=== PATIENT | male | born 1980 | race Caucasian/White ===

== ENCOUNTER 2017-09-20 10:35 | Inpatient (IN) | payer SELFPAY ==
[2017-09-20 11:23] VITALS: BMI 32.8
--- NOTE | 2017-09-20 12:57 | HP ---
COWS - Scale Resting Pulse: 1= [place] 81-100 Sweatin= Chills/Flushing Restless Observation: 1= Difficult to Sit Still Pupil Size: 1= Pupils >than Normal Bone or Joint Aches: 2= Severe Diffuse Aches Runny Nose/ Eye Tearin= Runny Nose/Eyes GI Upset > 30mins: 1= Stomach Cramp Tremor Observation: 2= Slight Tremor Visible Yawning Observation: 2= >3x During Session Anxiety or Irritability: 2=Irritable/Anxious Goose Flesh Skin: 0=Smooth Skin COWS Score: 15 Admission ROS S - HPI Chief Complaint: withdrawal sx Allergies/Adverse Reactions: Allergies Allergy/AdvReac Type Severity Reaction Status Date / Time No Known Allergies Allergy Verified 09/20/17 12:55 History of Present Illness: 37 years old male with long history of herin oxy nicotine dependence first detox is admitted to detox patient denies medical issue denies psychiatric issue Exam Limitations: No Limitations - Ebola screening Have you traveled outside of the country in the last 21 days: No Have you had contact with anyone from an Ebola affected area: No Have you been sick,other than usual withdrawal symptoms: No Do you have a fever: No - Review of Systems Constitutional: Weight Stable EENT: reports: No Symptoms Reported Respiratory: reports: No Symptoms reported Cardiac: reports: No Symptoms Reported GI: reports: Poor Fluid Intake, Abdominal cramping : reports: No Symptoms Reported Musculoskeletal: reports: Back Pain, Joint Pain, Muscle Pain, Neck Pain Integumentary: reports: No Symptoms Reported Neuro: reports: Tremors Endocrine: reports: No Symptoms Reported Hematology: reports: No Symptoms Reported Psychiatric: reports: Judgement Intact, Mood/Affect Appropiate, Orientated x3 Other Systems: Reviewed and Negative Patient History - Patient Medical History Hx Anemia: No Hx Asthma: No Hx Chronic Obstructive Pulmonary Disease (COPD): No Hx Cancer: No Hx Cardiac Disorders: No Hx Congestive Heart Failure: No Hx Hypertension: No Hx Hypercholesterolemia: No Hx Pacemaker: No HX Cerebrovascular Accident: No Hx Seizures: No Hx Dementia: No Hx Diabetes: No Hx Gastrointestinal Disorders: No Hx Liver Disease: No Hx Genitourinary Disorders: No Hx Sexually Transmitted Disorders: No Hx Renal Disease (ESRD): No Hx Thyroid Disease: No Hx Human Immunodeficiency Virus (HIV): No Hx Hepatitis C: No Hx Depression: No Hx Suicide Attempt: No Hx Bipolar Disorder: No Hx Schizophrenia: No - Patient Surgical History Past Surgical History: No - PPD History Previous Implant?: Yes Documented Results: Negative w/o proof Implanted On Prior R Admission?: No PPD to be Administered?: Yes - Smoking Cessation Smoking history: Current every day smoker Have you smoked in the past 12 months: No Aproximately how many cigarettes per day: 4 Hx Chewing Tobacco Use: No Initiated information on smoking cessation: Yes 'Breaking Loose' booklet given: 09/20/17 - Substance & Tx. History Hx Alcohol Use: No Hx Substance Use: Yes Substance Use Type: Heroin, Opiates Hx Substance Use Treatment: No - Substances Abused Heroin Route: Inhalation Frequency: Daily Amount used: 30 bags Age of first use: 36 Date of Last Use: 09/19/17 Oxycontin Route: Oral Frequency: Daily Amount used: 300 mg Age of first use: 32 Date of Last Use: 09/17/17 Family Disease History - Family Disease History Family Disease History: Heart Disease: Father (), Other: Father Admission Physical Exam S - Vital Signs Vital Signs: Vital Signs - 24 hr 09/20/17 10:47 Temperature 97.6 F Pulse Rate 81 Respiratory 18 Rate Blood Pressure 145/81 - Physical General Appearance: Yes: Appropriately Dressed, Mild Distress, Tremorous, Irritable, Sweating, Anxious HEENTM: Yes: Hearing grossly Normal, Normocephalic, Normal Voice Respiratory: Yes: Chest Non-Tender, Lungs Clear, Normal Breath Sounds, No Respiratory Distress, No Accessory Muscle Use Neck: Yes: Supple, Trachea in good position Breast: Yes: Breasts Symetrical, No Discharge Cardiology: Yes: Regular Rhythm, Regular Rate, S1, S2 Abdominal: Yes: Non Tender, Flat, Increased Bowel Sounds Genitourinary: Yes: Within Normal Limits Back: Yes: Normal Inspection Musculoskeletal: Yes: full range of Motion, Gait Steady, Back pain, Muscle Pain Extremities: Yes: Normal Inspection, Normal Range of Motion, Non-Tender, Tremors Neurological: Yes: Fully Oriented, Alert, Motor Strength 5/5, Normal Mood/Affect , Normal Response Integumentary: Yes: Normal Color, Warm Lymphatic: Yes: Within Normal Limits - Diagnostic (1) Opioid dependence with withdrawal Current Visit: Yes Status: Acute (2) Nicotine dependence Current Visit: Yes Status: Acute Qualifiers: Nicotine product type: cigarettes Substance use status: in withdrawal Qualified Code(s): F17.213 - Nicotine dependence, cigarettes, with withdrawal Cleared for Admission [facility] - Detox or Rehab [facility] Level of Care: Medically Managed Detox Regimen/Protocol: Methadone [facility] Breath Alcohol Content Breath Alcohol Content: 0 Urine Drug Screen - Control Is Test Valid: Yes - Results Drug Screen Negative: No Urine Drug Screen Results: OPI-Opiates, TCA-Tricyclic Antidepress, OXY-Oxycodone
[2017-09-20] MEDS ORDERED: NICOTINE POLACRILEX 2 MG GUM BUC PRN (13:05)
[2017-09-20] MEDS ORDERED: P-EPHED 60MG/TRIPROLIDI 2.5MG TABLET PO PRN (13:05)
[2017-09-20] MEDS ORDERED: MAGNESIUM HYDROX 2400MG/30ML ORAL SUSPENSION 30 ML CUP PO PRN (13:05)
[2017-09-20] MEDS ORDERED: IBUPROFEN 400 MG TABLET (FP) PO PRN (13:05)
[2017-09-20] MEDS ORDERED: MAG HYDROX/AL HYDROX/SIMETH 30 ML UNIT-DOSE CUP PO PRN (13:05)
[2017-09-20] MEDS ORDERED: guaiFENesin/D-METHORPHAN HB 10 ML UNIT-DOSE CUPS PO PRN (13:05)
[2017-09-20] MEDS ORDERED: LOPERAMIDE HCL 2 MG CAPSULE PO PRN (13:05)
[2017-09-20] MEDS ORDERED: MAGNESIUM CITRATE 300 ML BOTTLE PO PRN (13:05)
[2017-09-20] MEDS ORDERED: ACETAMINOPHEN 325 MG TABLET (FP) PO PRN (13:05)
[2017-09-20] MEDS ORDERED: MENTHOL/PHENOL 1 EACH UD MM PRN (13:05)
[2017-09-20] MEDS ORDERED: METHADONE HCL 10 MG TABLET (FOR DETOX USE ONLY) PO ONE ×2 (15:05→23:00)
[2017-09-20] MEDS: diazePAM 5 MG TABLET PO PRN ×2 (16:57→22:33)
[2017-09-20] MEDS: NICOTINE 14 MG/24 HOURS TOPICAL PATCH TD SCH (16:58)
[2017-09-20 17:58] LABS: HEMATOCRIT 45.1 % (35.4-49); HEMOGLOBIN 16.1 GM/dL (11.7-16.9); MCH 32.7 pg (25.7-33.7); MCHC 35.6 g/dl (32.0-35.9); MEAN CELL VOLUME 91.8 fl (80-96); MEAN PLT VOLUME 8.3 fl (7.5-11.1); PLATELET COUNT 266 K/MM3 (134-434); RBC 4.91 M/mm3 (4.00-5.60); RDW 13.8 % (11.9-15.9); WHITE BLOOD COUNT 7.7 K/mm3 (4.0-10.0)
[2017-09-20 18:09] LABS: URINE APPEARANCE CLEAR; URINE BILIRUBIN NEGATIVE (<2.0 mg/dL); URINE BLOOD NEGATIVE (NEGATIVE); URINE COLOR YELLOW; URINE GLUCOSE (UA) NEGATIVE (NEGATIVE); URINE KETONE NEGATIVE (NEGATIVE); URINE LEUK ESTERASE NEGATIVE (NEGATIVE); URINE NITRITE NEGATIVE (NEGATIVE); URINE PROTEIN NEGATIVE (NEGATIVE)
[2017-09-20 18:35] LABS: ANION GAP 5 (8-16); BLOOD UREA NITROGEN 11 mg/dL (7-18); CALCIUM 9.3 mg/dL (8.5-10.1); CHLORIDE 103 mmol/L (98-107); CO2 33 mmol/L (21-32); GLUCOSE,RANDOM 128 mg/dL (74-106); POTASSIUM 5.2 mmol/L (3.5-5.1); SODIUM 141 mmol/L (136-145)
[2017-09-20 18:39] LABS: ALK PHOS 72 U/L (45-117); BILIRUBIN,TOTAL 0.6 mg/dL (0.2-1.0); CREATININE 0.9 mg/dL (0.7-1.3); SGOT/AST 26 U/L (15-37); SGPT/ALT 35 U/L (12-78); TOT PROT 7.4 g/dl (6.4-8.2)
[2017-09-20] MEDS ORDERED: MELATONIN 5 MG TABLETS PO PRN (22:00)
[2017-09-20] MEDS: THIAMINE HCL 100 MG TABLET (FP) PO SCH (22:31)
[2017-09-21] MEDS ORDERED: METHADONE HCL 10 MG TABLET (FOR DETOX USE ONLY) PO ONE (10:00)
--- NOTE | 2017-09-21 10:02 | EKG ---
Test Reason : Blood Pressure : / mmHG Vent. Rate : 079 BPM Atrial Rate : 079 BPM P-R Int : 146 ms QRS Dur : 080 ms QT Int : 370 ms P-R-T Axes : 044 078 064 degrees QTc Int : 424 ms NORMAL SINUS RHYTHM NORMAL ECG NO PREVIOUS ECGS AVAILABLE Confirmed by LEAH OTERO MD ([id number]) on 09/21/2017 10:02:19 AM Referred By: Confirmed By:LEAH OTERO MD
[2017-09-21] MEDS: PRENATAL VITAMINS W/ FOLIC ACID TABLET (FP) PO SCH (10:41)
[2017-09-21] MEDS: diazePAM 5 MG TABLET PO PRN ×3 (10:41→22:28)
[2017-09-21] MEDS: NICOTINE 14 MG/24 HOURS TOPICAL PATCH TD SCH (10:41)
--- NOTE | 2017-09-21 12:18 | PN ---
BHS COWS - Scale Resting Pulse: 1= [place] 81-100 Sweatin= Chills/Flushing Restless Observation: 3= Extraneous Movement Pupil Size: 2= Moderately Dilated Bone or Joint Aches: 4=Acute Joint/Muscle Pain Runny Nose/ Eye Tearin= Nasal Congestion GI Upset > 30mins: 1= Stomach Cramp Tremor Observation of Outstretched Hands: 1= Tremor [place], Not Seen Yawning Observation: 2= >3x During Session Anxiety or Irritability: 2=Irritable/Anxious Goose Flesh Skin: 0=Smooth Skin COWS Score: 18 BHS Progress Note (SOAP) Subjective: ANXIETY,MUSCLE ACHES,,SWEATS,CHILLS. Objective: 09/21/17 12:16 Vital Signs Temperature 97.2 F L 09/21/17 09:41 Pulse Rate 85 09/21/17 09:41 Respiratory Rate 20 09/21/17 09:41 Blood Pressure 111/69 09/21/17 09:41 O2 Sat by Pulse Oximetry (%) Laboratory Last Values WBC 7.7 K/mm3 (4.0-10.0) 09/20/17 13:00 RBC 4.91 M/mm3 (4.00-5.60) 09/20/17 13:00 Hgb 16.1 GM/dL (11.7-16.9) 09/20/17 13:00 Hct 45.1 % (35.4-49) 09/20/17 13:00 MCV 91.8 fl (80-96) 09/20/17 13:00 MCH 32.7 pg (25.7-33.7) 09/20/17 13:00 MCHC 35.6 g/dl (32.0-35.9) 09/20/17 13:00 RDW 13.8 % (11.9-15.9) 09/20/17 13:00 Plt Count 266 K/MM3 (134-434) 09/20/17 13:00 MPV 8.3 fl (7.5-11.1) 09/20/17 13:00 Sodium 141 mmol/L (136-145) 09/20/17 13:00 Potassium 5.2 mmol/L (3.5-5.1) H 09/20/17 13:00 Chloride 103 mmol/L (98-107) 09/20/17 13:00 Carbon Dioxide 33 mmol/L (21-32) H 09/20/17 13:00 Anion Gap 5 (8-16) L 09/20/17 13:00 BUN 11 mg/dL (7-18) 09/20/17 13:00 Creatinine 0.9 mg/dL (0.7-1.3) 09/20/17 13:00 Creat Clearance w eGFR > 60 (>60) 09/20/17 13:00 Random Glucose 128 mg/dL (74-106) H 09/20/17 13:00 Calcium 9.3 mg/dL (8.5-10.1) 09/20/17 13:00 Total Bilirubin 0.6 mg/dL (0.2-1.0) 09/20/17 13:00 AST 26 U/L (15-37) 09/20/17 13:00 ALT 35 U/L (12-78) 09/20/17 13:00 Alkaline Phosphatase 72 U/L (45-117) 09/20/17 13:00 Total Protein 7.4 g/dl (6.4-8.2) 09/20/17 13:00 Albumin 4.0 g/dl (3.4-5.0) 09/20/17 13:00 Urine Color Yellow 09/20/17 15:00 Urine Appearance Clear 09/20/17 15:00 Urine pH 6.0 (5.0-8.0) 09/20/17 15:00 Ur Specific [place] 1.021 (1.001-1.035) 09/20/17 15:00 Urine Protein Negative (NEGATIVE) 09/20/17 15:00 Urine Glucose (UA) Negative (NEGATIVE) 09/20/17 15:00 Urine Ketones Negative (NEGATIVE) 09/20/17 15:00 Urine Blood Negative (NEGATIVE) 09/20/17 15:00 Urine Nitrite Negative (NEGATIVE) 09/20/17 15:00 Urine Bilirubin Negative (<2.0 mg/dL) 09/20/17 15:00 Urine Urobilinogen 2.0 mg/dL (0.2-1.0) 09/20/17 15:00 Ur Leukocyte Esterase Negative (NEGATIVE) 09/20/17 15:00 RPR Titer Nonreactive (NONREACTIVE) 09/20/17 13:00 Hep C Ab Diagnostic <0.1 s/co ratio (0.0-0.9) 09/20/17 13:00 Liver Fibrosis Interp (.) 09/20/17 13:00 HIV 1&2 Antibody Screen Negative 09/21/17 05:50 HIV P24 Antigen Negative 09/21/17 05:50 K+ =5.2 Assessment: 09/21/17 12:17 WITHDRAWAL SX Plan: CONTINUE DETOX INCREASE PO FLUIDS
[2017-09-21] MEDS: THIAMINE HCL 100 MG TABLET (FP) PO SCH (22:28)
[2017-09-22] MEDS: diazePAM 5 MG TABLET PO PRN ×4 (05:52→22:31)
[2017-09-22] MEDS ORDERED: METHADONE HCL 5 MG TABLET (FOR DETOX USE ONLY) PO ONE (10:00)
[2017-09-22] MEDS: PRENATAL VITAMINS W/ FOLIC ACID TABLET (FP) PO SCH (10:21)
[2017-09-22] MEDS: NICOTINE 14 MG/24 HOURS TOPICAL PATCH TD SCH (10:22)
--- NOTE | 2017-09-22 16:01 | PN ---
BHS COWS - Scale Resting Pulse: 0= [place] 80 or Below Sweatin= Chills/Flushing Restless Observation: 1= Difficult to Sit Still Pupil Size: 0= Normal to Room Light Bone or Joint Aches: 2= Severe Diffuse Aches Runny Nose/ Eye Tearin= None GI Upset > 30mins: 0= None Tremor Observation of Outstretched Hands: 2= Slight Tremor Visible Yawning Observation: 1= 1-2x During Session Anxiety or Irritability: 2=Irritable/Anxious Goose Flesh Skin: 3=Piloerection COWS Score: 12 BHS Progress Note (SOAP) Subjective: Interrupted Sleep, Sweating, Tremors, Body Aches, Fatigue. Objective: PATIENT A & O X 3. NO ACUTE DISTRESS. 09/22/17 15:59 Vital Signs Temperature 97.6 F 09/22/17 14:02 Pulse Rate 74 09/22/17 14:02 Respiratory Rate 18 09/22/17 14:02 Blood Pressure 105/53 09/22/17 14:02 O2 Sat by Pulse Oximetry (%) Laboratory Tests 09/20/17 09/20/17 09/20/17 13:00 13:00 13:00 WBC 7.7 RBC 4.91 Hgb 16.1 Hct 45.1 MCV 91.8 MCH 32.7 MCHC 35.6 RDW 13.8 Plt Count 266 MPV 8.3 Sodium 141 Potassium 5.2 H Chloride 103 Carbon Dioxide 33 H Anion Gap 5 L BUN 11 Creatinine 0.9 Creat Clearance w eGFR > 60 Random Glucose 128 H Calcium 9.3 Total Bilirubin 0.6 AST 26 ALT 35 Alkaline Phosphatase 72 Total Protein 7.4 Albumin 4.0 Urine Color Urine Appearance Urine pH Ur Specific [place] Urine Protein Urine Glucose (UA) Urine Ketones Urine Blood Urine Nitrite Urine Bilirubin Urine Urobilinogen Ur Leukocyte Esterase RPR Titer Hep C Ab Diagnostic <0.1 Liver Fibrosis Interp HIV 1&2 Antibody Screen HIV P24 Antigen 09/20/17 09/20/17 09/21/17 13:00 15:00 05:50 WBC RBC Hgb Hct MCV MCH MCHC RDW Plt Count MPV Sodium Potassium Chloride Carbon Dioxide Anion Gap BUN Creatinine Creat Clearance w eGFR Random Glucose Calcium Total Bilirubin AST ALT Alkaline Phosphatase Total Protein Albumin Urine Color Yellow Urine Appearance Clear Urine pH 6.0 Ur Specific [place] 1.021 Urine Protein Negative Urine Glucose (UA) Negative Urine Ketones Negative Urine Blood Negative Urine Nitrite Negative Urine Bilirubin Negative Urine Urobilinogen 2.0 Ur Leukocyte Esterase Negative RPR Titer Nonreactive Hep C Ab Diagnostic Liver Fibrosis Interp HIV 1&2 Antibody Screen Negative HIV P24 Antigen Negative 09/22/17 08:00 WBC RBC Hgb Hct MCV MCH MCHC RDW Plt Count MPV Sodium Potassium 4.1 D Chloride Carbon Dioxide Anion Gap BUN Creatinine Creat Clearance w eGFR Random Glucose Calcium Total Bilirubin AST ALT Alkaline Phosphatase Total Protein Albumin Urine Color Urine Appearance Urine pH Ur Specific [place] Urine Protein Urine Glucose (UA) Urine Ketones Urine Blood Urine Nitrite Urine Bilirubin Urine Urobilinogen Ur Leukocyte Esterase RPR Titer Hep C Ab Diagnostic Liver Fibrosis Interp HIV 1&2 Antibody Screen HIV P24 Antigen LABS NOTED. RESULT OF REPEAT K LEVEL NOTED. 09/22/17 16:00 Assessment: 09/22/17 15:59 WITHDRAWAL SYMPTOMS. Plan: CONTINUE DETOX.
[2017-09-22] MEDS: THIAMINE HCL 100 MG TABLET (FP) PO SCH (22:31)
[2017-09-23] MEDS ORDERED: METHADONE HCL 5 MG TABLET (FOR DETOX USE ONLY) PO ONE (10:00)
[2017-09-23] MEDS: diazePAM 5 MG TABLET PO PRN (10:29)
[2017-09-23] MEDS: PRENATAL VITAMINS W/ FOLIC ACID TABLET (FP) PO SCH (10:30)
[2017-09-23] MEDS: NICOTINE 14 MG/24 HOURS TOPICAL PATCH TD SCH (10:30)
[2017-09-23 14:24] VITALS: BP 125/69; PULSE 80; TEMP 99
--- NOTE | 2017-09-23 16:44 | DS ---
[facility] Detox Discharge Summary Admission Date: 09/20/17 Discharge Date: 09/23/17 - History Present History: Opioid Dependence Additional Comments: Patient is aware he is not ready for discharge. Patient stated he doesn't care and that he is leaving anyway. Pertinent Past History: Denies - Physical Exam Results Vital Signs: Vital Signs Temperature 99 F 09/23/17 14:24 Pulse Rate 80 09/23/17 14:24 Respiratory Rate 20 09/23/17 14:24 Blood Pressure 125/69 09/23/17 14:24 O2 Sat by Pulse Oximetry (%) Pertinent Admission Physical Exam Findings: Withdrawal symptoms Laboratory Tests 09/20/17 09/20/17 09/20/17 13:00 13:00 13:00 WBC 7.7 RBC 4.91 Hgb 16.1 Hct 45.1 MCV 91.8 MCH 32.7 MCHC 35.6 RDW 13.8 Plt Count 266 MPV 8.3 Sodium 141 Potassium 5.2 H Chloride 103 Carbon Dioxide 33 H Anion Gap 5 L BUN 11 Creatinine 0.9 Creat Clearance w eGFR > 60 Random Glucose 128 H Calcium 9.3 Total Bilirubin 0.6 AST 26 ALT 35 Alkaline Phosphatase 72 Total Protein 7.4 Albumin 4.0 Urine Color Urine Appearance Urine pH Ur Specific [place] Urine Protein Urine Glucose (UA) Urine Ketones Urine Blood Urine Nitrite Urine Bilirubin Urine Urobilinogen Ur Leukocyte Esterase RPR Titer Hep C Ab Diagnostic <0.1 Liver Fibrosis Interp HIV 1&2 Antibody Screen HIV P24 Antigen 09/20/17 09/20/17 09/21/17 13:00 15:00 05:50 WBC RBC Hgb Hct MCV MCH MCHC RDW Plt Count MPV Sodium Potassium Chloride Carbon Dioxide Anion Gap BUN Creatinine Creat Clearance w eGFR Random Glucose Calcium Total Bilirubin AST ALT Alkaline Phosphatase Total Protein Albumin Urine Color Yellow Urine Appearance Clear Urine pH 6.0 Ur Specific [place] 1.021 Urine Protein Negative Urine Glucose (UA) Negative Urine Ketones Negative Urine Blood Negative Urine Nitrite Negative Urine Bilirubin Negative Urine Urobilinogen 2.0 Ur Leukocyte Esterase Negative RPR Titer Nonreactive Hep C Ab Diagnostic Liver Fibrosis Interp HIV 1&2 Antibody Screen Negative HIV P24 Antigen Negative 09/22/17 08:00 WBC RBC Hgb Hct MCV MCH MCHC RDW Plt Count MPV Sodium Potassium 4.1 D Chloride Carbon Dioxide Anion Gap BUN Creatinine Creat Clearance w eGFR Random Glucose Calcium Total Bilirubin AST ALT Alkaline Phosphatase Total Protein Albumin Urine Color Urine Appearance Urine pH Ur Specific [place] Urine Protein Urine Glucose (UA) Urine Ketones Urine Blood Urine Nitrite Urine Bilirubin Urine Urobilinogen Ur Leukocyte Esterase RPR Titer Hep C Ab Diagnostic Liver Fibrosis Interp HIV 1&2 Antibody Screen HIV P24 Antigen Labs reviewed - Medication Discharge Medications: Ambulatory Orders NK [No Known Home Medication] 09/20/17 - Diagnosis (1) Nicotine dependence Status: Chronic Qualifiers: Nicotine product type: cigarettes Substance use status: in withdrawal Qualified Code(s): F17.213 - Nicotine dependence, cigarettes, with withdrawal (2) Opioid dependence with withdrawal Status: Acute - AMA Did Patient Leave Against Medical Advice: Yes (F/U with your PCP within 3 days)
[2017-09-24] MEDS ORDERED: METHADONE HCL 10 MG TABLET (FOR DETOX USE ONLY) PO ONE (10:00)
[2017-09-25] MEDS ORDERED: METHADONE HCL 5 MG TABLET (FOR DETOX USE ONLY) PO ONE (06:00)
== END 2017-09-23 15:43 | disposition left against medical advice (07) | DRG 770 ==
LOC: YASAS 10:35 → Y3N 14:13
PROVIDERS: ADMIT Internal Medicine; ATTEND Internal Medicine
PROC: HZ2ZZZZ Detoxification Services for Substance Abuse Treatment (ICD-10-PCS; principal; 2017-09-20)
DX: F11.23 Opioid dependence with withdrawal (principal); F17.210 Nicotine dependence, cigarettes, uncomplicated
CPT/HCPCS: 36415; 80053; 81003; 84132; 85027; 86593; 87389; 93005; 93010